=== PATIENT | male | born 1945 | race Two or more races ===

== ENCOUNTER 2020-05-02 12:25 | Emergency (ER) | payer MEDICARE, BC ==
[~2020-05-02] VITALS: Ht 172.7 cm; Wt 72.6 kg
[2020-05-02] MEDS ORDERED: GABA300C10 PO (12:53)
[2020-05-02] MEDS ORDERED: MID10T PO (12:53)
[2020-05-02] MEDS ORDERED: LEVO100T8 PO (12:53)
[2020-05-02] MEDS ORDERED: PANT40TA2 PO (12:54)
[2020-05-02] MEDS ORDERED: SUCR1TAB22 OR (12:57)
[2020-05-02] MEDS ORDERED: LACT10SO60 PO (12:57)
[2020-05-02] MEDS ORDERED: TAMS0.4C36 PO (12:58)
[2020-05-02] MEDS ORDERED: CALALOT17 EX (12:59)
[2020-05-02 14:25] LABS: Basophils # (auto) 0 10 ^3/uL (0-0.2); Basophils % (auto) 0.6 % (0.0-2.0); Eosinophils # (auto) 0.1 10 ^3/uL (0-0.8); Eosinophils % (auto) 2.2 % (0.0-7.0); Hematocrit 32.4 % (41.0-53.0); Hemoglobin 10.2 g/dL (13.5-17.5); Lymphocytes # (auto) 0.9 10 ^3/uL (0.4-5.4); Lymphocytes % (auto) 24.9 % (10.0-50.0); Mean Corpuscular Hemoglobin 28.9 pg (28.0-32.0); Mean Corpuscular Hgb Conc. 31.6 g/dL (32.0-36.0); Mean Corpuscular Volume 91.3 fL (80.0-100.0); Monocytes # (auto) 0.4 10 ^3/uL (0-1.3); Monocytes % (auto) 10.3 % (0.0-12.0); Neutrophils # (auto) 2.4 10 ^3/uL (1.6-8.6); Nucleated Red Blood Cells % 0.1 %; Platelet Count (auto) 85 10^3/uL (140-450); Red Blood Cells 3.54 10^6/uL (4.5-5.90); Red Cell Distribution Width 19.1 % (11.8-14.3); White Blood Cell 3.8 10^3/uL (4.4-10.8)
[2020-05-02 14:27] VITALS: BP 84/50
[2020-05-02 14:41] LABS: INR 1.5 (0.9-1.15); Partial Thromboplastin Time 43.7 sec (23.0-31.2)
[2020-05-02 14:44] LABS: Calcium 7.7 mg/dL (8.5-10.1); Potassium 4.5 mmol/L (3.5-5.1)
[2020-05-02 14:47] LABS: BUN/Creatinine Ratio 8.2; Bilirubin, Total 1.2 mg/dL (0.2-1.0)
== END 2020-05-02 15:58 | disposition home or self-care (01) ==
LOC: ER 12:25
DX: R18.8 Other ascites (principal); I95.9 Hypotension, unspecified; R06.02 Shortness of breath; Z79.899 Other long term (current) drug therapy
CPT/HCPCS: 36415; 49083; 76700; 76942; 80053; 82140; 83690; 85025; 85610; 85730

== ENCOUNTER 2020-05-09 10:00 | Inpatient (IN) | payer MEDICARE, BC ==
[~2020-05-09] VITALS: Ht 172.7 cm; Wt 76.2 kg
[~2020-05-09 10:00] MED LIST: CALALOT17 EX; GABA300C10 PO; LACT10SO60 PO; LEVO100T8 PO; MID10T PO; PANT40TA2 PO; SUCR1TAB22 OR; TAMS0.4C36 PO
[2020-05-09 10:46] LABS: Basophils # (auto) 0 10 ^3/uL (0-0.2); Basophils % (auto) 0.9 % (0.0-2.0); Eosinophils # (auto) 0.1 10 ^3/uL (0-0.8); Hematocrit 35.2 % (41.0-53.0); Hemoglobin 11.3 g/dL (13.5-17.5); Lymphocytes # (auto) 1.1 10 ^3/uL (0.4-5.4); Lymphocytes % (auto) 31.5 % (10.0-50.0); Mean Corpuscular Hemoglobin 28.4 pg (28.0-32.0); Mean Corpuscular Hgb Conc. 32.2 g/dL (32.0-36.0); Mean Corpuscular Volume 88.1 fL (80.0-100.0); Monocytes # (auto) 0.4 10 ^3/uL (0-1.3); Monocytes % (auto) 10.9 % (0.0-12.0); Neutrophils # (auto) 1.8 10 ^3/uL (1.6-8.6); Neutrophils % (auto) 53.7 % (37.0-80.0); Nucleated Red Blood Cells % 0.1 %; Platelet Count (auto) 74 10^3/uL (140-450); Red Blood Cells 3.99 10^6/uL (4.5-5.90); Red Cell Distribution Width 18.8 % (11.8-14.3); White Blood Cell 3.4 10^3/uL (4.4-10.8)
[2020-05-09 11:01] LABS: Albumin 2.3 g/dL (3.4-5.0); Calcium 7.8 mg/dL (8.5-10.1); Potassium 4.4 mmol/L (3.5-5.1)
[2020-05-09 11:05] LABS: BUN/Creatinine Ratio 7.7; Bilirubin, Total 1.2 mg/dL (0.2-1.0); Total Protein 6.6 g/dL (6.4-8.2)
[2020-05-09 11:29] LABS: INR 1.35 (0.9-1.15); Partial Thromboplastin Time 40.7 sec (23.0-31.2)
[2020-05-09] MEDS ORDERED: FUROSEMIDE 40 MG/4 ML VIAL IV ONE ×2 (13:15→16:15)
[2020-05-09] MEDS ORDERED: LACTULOSE 20Gm/30ML SOLN PO ONE (13:15)
[2020-05-09] MEDS ORDERED: SODIUM CHLORIDE 0.9% 500 ML IVB ONE (13:15)
[2020-05-09] MEDS ORDERED: SODIUM CHLORIDE 0.9% 1,000 ML IV ONE (13:15)
[2020-05-09] MEDS ORDERED: SPIRONOLACTONE 25 MG TAB PO ONE (13:15)
[2020-05-09 13:38] LABS: Magnesium 2.2 mg/dL (1.6-2.6)
[2020-05-09] MEDS ORDERED: NITROGLYCERIN 0.4 MG SL TAB SL PRN (15:15)
[2020-05-09] MEDS ORDERED: HYDROcodone-ACET 5/325MG TAB PO PRN (15:15)
[2020-05-09] MEDS ORDERED: ONDANSETRON HCL 4 MG/2 ML VIAL IV PRN (15:15)
[2020-05-09] MEDS ORDERED: MORPHINE SULF INJ 2 MG/ML SYRINGE 1ML IV PRN ×2 (15:15)
[2020-05-09] MEDS ORDERED: ALBUMIN 25% 50 ML IV ONE (15:15)
[2020-05-09] MEDS ORDERED: ACETAMINOPHEN 500 MG TAB PO PRN (15:15)
[2020-05-09 15:19] LABS: Urine Bacteria FEW /hpf (None Seen); Urine Blood 2+ /uL (Negative); Urine Specific Gravity 1.005 (1.001-1.035); Urine WBC 113 /hpf (0 - 3); Urine WBC Clumps PRESENT /hpf (None Seen)
[2020-05-09] MEDS: MIDODRINE HCL 10 MG TAB PO SCH (17:38)
[2020-05-09] MEDS: TAMSULOSIN HYDROCHLORIDE 0.4 MG CAP PO SCH (17:38)
--- NOTE | 2020-05-09 21:40 | NUR ---
Telemetry admit from [facility] admitted to Telemetry unit after SBAR received. Patient oriented to Niru armas RN, unit, room, bed, and unit policies regarding patient care and visiting hours. Patient now on continuous telemetry monitoring, tele box # 67 and telemetry reading on arrival to unit is SR 92. Patient placed on bedside oxygen, weighed by bed scale and encouraged to call if they need something. All questions and concerns addressed, patient verbalized understanding. Note: Came per wheelchair, awake alert oriented x 4, very hard of hearing, placed in the bed comfortably, vital signs checked,with Brice leg bag with yellow urine output, changed the leg bag to big bag.
[2020-05-09] MEDS: LACTULOSE 20Gm/30ML SOLN PO SCH (21:42)
[2020-05-09] MEDS: APIXABAN 5 MG TAB PO SCH (21:43)
[2020-05-09 22:23] VITALS: BP 90/60
--- NOTE | 2020-05-09 22:30 | NUR ---
Admission Admission done by this RN. Information obtain from daughter. Daughter will like for RN to notify Primary Care provider about her father hospital visit (Dr.Kevin Pizarro ). Patient is a high risk for VTE, notified primary nurse.
[2020-05-09] MEDS ORDERED: SPIR25TA8 PO (22:53)
[2020-05-09] MEDS ORDERED: APIX5TAB PO (22:53)
[2020-05-09] MEDS ORDERED: POTA10TA51 PO (22:53)
[2020-05-09] MEDS ORDERED: FURO1TAB33 PO (22:54)
[2020-05-09 23:36] VITALS: BP 90/60
[2020-05-10 05:28] VITALS: BP 97/69
[2020-05-10] MEDS: MIDODRINE HCL 10 MG TAB PO SCH ×3 (05:31→17:47)
[2020-05-10] MEDS ORDERED: LEVOTHYROXINE SODIUM 100 MCG TAB PO SCH (07:00)
--- NOTE | 2020-05-10 07:31 | NUR ---
Report given to Eder Hampton, patient is resting no distress.
[2020-05-10 09:00] VITALS: BP 91/63
--- NOTE | 2020-05-10 09:10 | NUR ---
Memo BRYANT notified to hold Eliquis for procedure, needs to be 1-2 days after last dose.
--- NOTE | 2020-05-10 09:16 | NUR ---
RECEIVED CALL FOR HOLDING ELIQUIS DUE TO PLAN TAP ON 05/11/20 PER RADIOLOGY STAFF.
[2020-05-10] MEDS: APIXABAN 5 MG TAB PO SCH ×2 (10:00→19:33)
[2020-05-10] MEDS: PANTOPRAZOLE 40 MG TAB PO SCH (10:00)
[2020-05-10] MEDS: LACTULOSE 20Gm/30ML SOLN PO SCH ×2 (10:00→23:04)
[2020-05-10 13:00] VITALS: BP 94/66
[2020-05-10] MEDS ORDERED: PHYTONADIONE(VitK) ORAL Susp 10mg/10ml(1mg/ml) PO ONE (15:15)
--- NOTE | 2020-05-10 15:16 | NUR ---
ss consult Per ss consult daughter is interested in advanced directive. I have provided patient with advanced directive. Addendum: 05/10/20 at 1517 by Merle MEJIA Amended: Links added.
--- NOTE | 2020-05-10 15:25 | NUR ---
PHARMACY CONTACTED FOR VIT-K PROCUREMENT
[2020-05-10] MEDS ORDERED: LEVOTHYROXINE SODIUM 50 MCG TAB PO ONE (15:30)
[2020-05-10 17:00] VITALS: BP 91/63
--- NOTE | 2020-05-10 17:30 | NUR ---
PHARMACY WILL SEND VIT-K. AWAITING
[2020-05-10] MEDS: TAMSULOSIN HYDROCHLORIDE 0.4 MG CAP PO SCH (17:47)
--- NOTE | 2020-05-10 18:19 | NUR ---
AWAITING PHARMACY- VIT-K.
[2020-05-10 22:00] VITALS: BP 95/60
--- NOTE | 2020-05-10 22:00 | NUR ---
Per report from ANNETTE Hampton and notes, patient going for procedure on 05/11/20 and to hold Eliquis. Medication held.
[2020-05-11] VITALS (13 sets, daily range): BP systolic 89–115; BP diastolic 60–79
[2020-05-11] MEDS: MIDODRINE HCL 10 MG TAB PO SCH ×3 (05:20→17:26)
--- NOTE | 2020-05-11 05:35 | NUR ---
KARLIE Reyna applied and mcdonald care given. patient tolerated well. Addendum: 05/11/20 at 0631 by Alverto Toth RN full linen bed change given as well.
--- NOTE | 2020-05-11 05:35 | NUR ---
upon CHG wipe down, notice scab/abrasion on right lateral calf muscle x1. Patient verbally states "I had this scab from home". open to air, no drainage noted.
[2020-05-11 06:22] LABS: INR 1.3 (0.9-1.15)
[2020-05-11 06:32] LABS: Potassium 4.4 mmol/L (3.5-5.1)
[2020-05-11 06:44] LABS: Basophils # (auto) 0 10 ^3/uL (0-0.2); Basophils % (auto) 0.8 % (0.0-2.0); Eosinophils # (auto) 0.1 10 ^3/uL (0-0.8); Eosinophils % (auto) 2.6 % (0.0-7.0); Hematocrit 36.5 % (41.0-53.0); Hemoglobin 11.7 g/dL (13.5-17.5); Lymphocytes # (auto) 0.9 10 ^3/uL (0.4-5.4); Mean Corpuscular Hemoglobin 28.2 pg (28.0-32.0); Mean Corpuscular Hgb Conc. 32.1 g/dL (32.0-36.0); Mean Corpuscular Volume 87.7 fL (80.0-100.0); Monocytes # (auto) 0.2 10 ^3/uL (0-1.3); Monocytes % (auto) 8.1 % (0.0-12.0); Neutrophils # (auto) 1.7 10 ^3/uL (1.6-8.6); Neutrophils % (auto) 57.5 % (37.0-80.0); Nucleated Red Blood Cells % 0.1 %; Platelet Count (auto) 73 10^3/uL (140-450); Red Blood Cells 4.16 10^6/uL (4.5-5.90); Red Cell Distribution Width 18.9 % (11.8-14.3); White Blood Cell 2.9 10^3/uL (4.4-10.8)
[2020-05-11 06:57] LABS: Albumin 2.5 g/dL (3.4-5.0); BUN/Creatinine Ratio 7.8; Bilirubin, Direct 0.9 mg/dL (0-0.2); Bilirubin, Total 1.8 mg/dL (0.2-1.0); Calcium 8.1 mg/dL (8.5-10.1); Total Protein 6.7 g/dL (6.4-8.2)
[2020-05-11] MEDS ORDERED: LEVOTHYROXINE SODIUM 50 MCG TAB PO SCH (07:00)
--- NOTE | 2020-05-11 07:20 | NUR ---
PT NPO FOR PLANNED PROCEDURES. PT AWARE.
[2020-05-11] MEDS ORDERED: ADENOSINE 64 MG in GIVE UN-DILUTED 0 ML IV STA (08:18)
[2020-05-11] MEDS: PANTOPRAZOLE 40 MG TAB PO SCH (10:00)
[2020-05-11] MEDS: APIXABAN 5 MG TAB PO SCH (10:00)
[2020-05-11] MEDS: LACTULOSE 20Gm/30ML SOLN PO SCH (10:00)
--- NOTE | 2020-05-11 10:45 | NUR ---
WOUND CARE NOTE: WOUND CONSULT ORDERED FOR PATIENT FOR WOUND TO RIGHT CALF. WOUND PHOTO TAKEN UPON ADMIT. PATIENT HAS CURRENT ARMANDO SCORE OF 19. PATIENT CAN AMBULATE, SELF TURN. PATIENT HAS A SMALL SCABBED ABRASION TO THE RIGHT CALF. NO OPEN OR DRAINING AREAS NOTED. LEFT OPEN TO AIR. NO FURTHER WOUND CARE MONITORING NEEDED.
--- NOTE | 2020-05-11 11:35 | NUR ---
PARACENTESIS COMPLETED. PT TOLERATED PROCEDURE WELL. NO S/S OF DISTRESS. OUTPUT TOTAL: 4800ml CALL LIGHT WITHIN REACH. BED LOCKED AND IN LOWEST POSITION. WILL CONTINUE TO MONITOR.
--- NOTE | 2020-05-11 12:15 | NUR ---
Pt taken to cardiac cath tech for IVC filter placement. Pt and daughter Henrietta aware of planned procedure. Pt transported via bed. No s/s of distress.
[2020-05-11] MEDS ORDERED: LIDOCAINE 2%HCL (LOCAL ANESTH.) INJ 20ML MDV ONE ×2 (13:26→14:12)
[2020-05-11] MEDS ORDERED: fentaNYL CITRATE 100 MCG/2 ML VL ONE (13:28)
[2020-05-11] MEDS ORDERED: MIDAZOLAM HCL 1MG/1ML-2 ML VIAL ONE (13:28)
--- NOTE | 2020-05-11 15:10 | NUR ---
PT BACK TO UNIT. TRANSPORTED VIA BED. NO S/S OF DISTRESS. EFFORTLESS BREATHING ON ROOM AIR. PER REPORT: ARTERIAL ACCESS SITE TO RIGHT GROIN, VENOUS ACCESS SITE TO LEFT GROIN. BOTH SITES DRESSING CDI, ASYMPTOMATIC. PT AWARE OF REMAINING FLAT IN BED UNTIL 1635. VERBALIZES UNDERSTANDING. BED LOCKED AND IN LOWEST POSITION, CALL LIGHT WITHIN REACH. WILL CONTINUE TO MONITOR.
--- NOTE | 2020-05-11 16:33 | NUR ---
PER MD BOWMAN. PT OK TO DC AFTER ABLE TO SIT UP AND GET OUT OF BED. TIME SET PER IRRIGATION FLUME LAYER ORDERS POST PROCEDURE 1999. PER OK TO DC PT AFTER 1999 PT AND DAUGHTER WILL AWARE OF PLAN.
[2020-05-11] MEDS: TAMSULOSIN HYDROCHLORIDE 0.4 MG CAP PO SCH (17:26)
--- NOTE | 2020-05-11 18:30 | NUR ---
PT IN LOW FOWLERS, DENIES ANY PAIN, EFFORTLESS BREATHING ON ROOM AIR. IVC FILTER INCISION SITES ASYMPTOMATIC AT MOMENT. CALL LIGHT WITHIN REACH.
--- NOTE | 2020-05-11 20:59 | NUR ---
SPOKE TO JSOE FROM [facility] AND NOTIFIED HIM OF PATIENT BEING DISCHARGE NOW. JOSE FROM [facility] PROVIDED CONFIRMATION THAT HE WILL CONTINUE HOME HEALTH WITH PATIENT. Addendum: 05/11/20 at 2101 by Alverto Toth RN FAXED DISCHARGE INSTRUCTIONS TO [facility] REQUESTED BY JOSE FROM [facility]. FAX NUMBER IS [phone]
--- NOTE | 2020-05-11 21:40 | NUR ---
Discharge instructions given as ordered. Encourage to follow up with PMD as instructed. All questions and concerns addressed. Patient and daughter Jose verbalized understanding. Medication reconciliation form completed and copy given to patient. no vaccines given, patient is up to date. IV removed with catheter intact, pressure dressing applied. Per report from ANNETTE Hampton, patient is to go home with mcdonald catheter and to change to leg bag which was completed. patient has leg bag on. Telemetry unit returned to ICU. Patient taken to vehicle via wheelchair with all personal belongings, accompanied by staff and family member. Everything explained to daughter once I took patient down stairs. Per daughter all appointments are made for follow ups. Educated patient and daughter on incision care for ivc filter. there are two incisions sites, with dressings clean dry and intact/ no swelling, blood, heat, at incision sites. Educated patient on patient activity as ordered. No distress noted at time of departure. Home health contacted earlier to resume. patient was off floor 2108. Addendum: 05/11/20 at 2146 by Alverto Toth RN jose rice acknowledge all education and instructions given. Addendum: 05/11/20 at 2147 by Alverto Toth RN wound picture taken for right calf abrasion scab.
[2020-05-17] MEDS ORDERED: ALBUMIN 25% 100 ML IV ONE (10:00)
== END 2020-05-11 21:09 | disposition home health service (06) | DRG 433 ==
LOC: ER 10:00 → TELE 10:01 → TELE-WESTW 21:40
PROVIDERS: ADMIT Nurse Practitioner Acute Care; ATTEND Internal Medicine
PROC: 0W9G30Z Drainage of Peritoneal Cavity with Drainage Device, Percutaneous Approach (ICD-10-PCS; principal; 2020-05-11)
PROC: 06H03DZ Insertion of Intraluminal Device into Inferior Vena Cava, Percutaneous Approach (ICD-10-PCS; 2020-05-11)
DX: K70.31 Alcoholic cirrhosis of liver with ascites (principal); I82.421 Acute embolism and thrombosis of right iliac vein; E87.1 Hypo-osmolality and hyponatremia; D68.59 Other primary thrombophilia; D61.818 Other pancytopenia; J98.11 Atelectasis; E44.0 Moderate protein-calorie malnutrition; I95.9 Hypotension, unspecified; Z79.01 Long term (current) use of anticoagulants; N28.89 Other specified disorders of kidney and ureter; K21.9 Gastro-esophageal reflux disease without esophagitis; E03.9 Hypothyroidism, unspecified; N40.0 Benign prostatic hyperplasia without lower urinary tract symptoms; E86.1 Hypovolemia; I10 Essential (primary) hypertension; I95.89 Other hypotension; Z80.42 Family history of malignant neoplasm of prostate; Z83.3 Family history of diabetes mellitus; Z86.718 Personal history of other venous thrombosis and embolism; Z95.828 Presence of other vascular implants and grafts; G62.9 Polyneuropathy, unspecified; M19.90 Unspecified osteoarthritis, unspecified site; Z79.899 Other long term (current) drug therapy
CPT/HCPCS: 10022; 36415; 71045; 76700; 76942; 78452; 80048; 80053; 80076; 81001; 83690; 83735; 84443; 85025; 85610; 85730; 86850; 86900; 86901; 87081; 93017; 93886; 96361; 96365; 96375; 99152; G0378; J0153; J2250

== ENCOUNTER → 2020-05-18 | Outpatient (CLI) | payer MEDICARE, BC ==
[~2020-05-18] MED LIST changes: +APIX5TAB PO; -CALALOT17 EX; +FURO1TAB33 PO; +POTA10TA51 PO; +SPIR25TA8 PO
[2020-05-18 09:30] VITALS: BP 103/67
[2020-05-18 09:45] VITALS: BP 108/67
[2020-05-18 09:55] VITALS: BP 95/63
[2020-05-18 10:00] VITALS: BP 100/65
[2020-05-18 10:05] VITALS: BP 97/62
[2020-05-18 10:10] VITALS: BP 97/61
--- NOTE | 2020-05-18 10:17 | NUR ---
PT ARRIVED TODAY FOR PARACENTESIS PROCEDURE. PT PRESENTED A/Ox4 AND VITAL SIGNS ARE ALL WITHIN NORMAL LIMITS. PT SPO2 97% ON ROOM AIR. PROCEDURE WAS PERFORMED BY DR. APODACA, GAINING ACCESS TO THE ABDOMINAL CAVITY THOUGH THE RUQ OF THE ABDOMEN. 4,450ML OF SEROUS COLORED FLUID WAS DRAINED WITH NO SHIFT IN VITAL SIGNS OR PT CONDITION. THE CATHETER WAS REMOVED AND DRESSED WITH A STERILE TECHNIQUE. ENDING VITAL SIGNS ARE ALL WITHIN NORMAL LIMITS ON ROOM AIR. PT WAS SENT HOME WITH SITE CARE INSTRUCTIONS.
== END | disposition home or self-care (01) ==
LOC: US 08:35
DX: R18.8 Other ascites (principal); Z86.718 Personal history of other venous thrombosis and embolism; Z80.42 Family history of malignant neoplasm of prostate; Z98.890 Other specified postprocedural states
CPT/HCPCS: 49083; C1729; 10022; 76942

== ENCOUNTER → 2020-05-27 | Outpatient (CLI) | payer MEDICARE, BC | END | disposition home or self-care (01) | LOC: US 10:14 | DX: R18.8 Other ascites (principal); Z86.718 Personal history of other venous thrombosis and embolism; Z98.890 Other specified postprocedural states; Z79.899 Other long term (current) drug therapy; Z80.42 Family history of malignant neoplasm of prostate | CPT/HCPCS: 49083; C1729; 10022; 76942 ==

== ENCOUNTER 2020-06-08 08:59 | Inpatient (IN) | payer MEDICARE, BC ==
[~2020-06-08] VITALS: Ht 172.7 cm; Wt 68.8 kg
[2020-06-08] MEDS ORDERED: SODIUM CHLORIDE 0.9% 1,000 ML IV ONE (09:15)
[2020-06-08 09:49] LABS: Basophils # (auto) 0 10 ^3/uL (0-0.2); Hemoglobin 11.7 g/dL (13.5-17.5); Monocytes # (auto) 0.4 10 ^3/uL (0-1.3); Neutrophils # (auto) 2.2 10 ^3/uL (1.6-8.6); Platelet Count (auto) 74 10^3/uL (140-450); White Blood Cell 3.7 10^3/uL (4.4-10.8)
[2020-06-08 09:51] LABS: Basophils % (auto) 0.7 % (0.0-2.0); Eosinophils # (auto) 0.2 10 ^3/uL (0-0.8); Eosinophils % (auto) 4.1 % (0.0-7.0); Hematocrit 36.1 % (41.0-53.0); Lymphocytes % (auto) 25.9 % (10.0-50.0); Mean Corpuscular Hemoglobin 26.8 pg (28.0-32.0); Mean Corpuscular Hgb Conc. 32.5 g/dL (32.0-36.0); Mean Corpuscular Volume 82.4 fL (80.0-100.0); Monocytes % (auto) 9.8 % (0.0-12.0); Neutrophils % (auto) 59.5 % (37.0-80.0); Nucleated Red Blood Cells % 0.2 %; Red Blood Cells 4.38 10^6/uL (4.5-5.90)
[2020-06-08 09:52] LABS: Red Cell Distribution Width 20.3 % (11.8-14.3)
[2020-06-08 10:09] LABS: Albumin 2.5 g/dL (3.4-5.0); Calcium 8.5 mg/dL (8.5-10.1); Potassium 4.6 mmol/L (3.5-5.1)
[2020-06-08 10:16] LABS: BUN/Creatinine Ratio 16.7; Bilirubin, Total 1.3 mg/dL (0.2-1.0); Total Protein 6.8 g/dL (6.4-8.2)
[2020-06-08 12:51] LABS: Urine Bacteria NONE SEEN /hpf (None Seen); Urine Blood 1+ /uL (Negative); Urine Specific Gravity 1.004 (1.001-1.035); Urine WBC 1 /hpf (0 - 3)
[2020-06-08] MEDS ORDERED: MORPHINE SULF INJ 2 MG/ML SYRINGE 1ML IV PRN ×3 (14:00→14:30)
[2020-06-08] MEDS ORDERED: ALBUMIN 25% 100 ML IV ONE (14:00)
[2020-06-08] MEDS ORDERED: FUROSEMIDE 20 MG/2 ML VIAL IV ONE (14:00)
[2020-06-08] MEDS ORDERED: NITROGLYCERIN 0.4 MG SL TAB SL PRN ×2 (14:00→14:30)
[2020-06-08] MEDS ORDERED: POTA10TA32 PO (14:06)
[2020-06-08] MEDS ORDERED: SPIR25TA8 PO (14:09)
[2020-06-08] MEDS ORDERED: ONDANSETRON HCL 4 MG/2 ML VIAL IV PRN (14:30)
[2020-06-08] MEDS ORDERED: HYDROcodone-ACET 5/325MG TAB PO PRN (14:30)
[2020-06-08] MEDS ORDERED: cefTRIAXone 1GM/50ML D5W 50 ML IV ONE (14:30)
[2020-06-08] MEDS ORDERED: ACETAMINOPHEN 325 MG TAB PO PRN (14:30)
[2020-06-08] MEDS ORDERED: ALUM & MAG HYDROX-SIMETH LIQ(MAALOX) 30 ML PO PRN (14:30)
[2020-06-08] MEDS ORDERED: DOCUSATE SOD 100 MG CAP PO PRN (14:30)
[2020-06-08] MEDS ORDERED: LORazepam 0.5 MG TAB PO PRN (14:30)
[2020-06-08] MEDS ORDERED: LACTULOSE 20Gm/30ML SOLN PO PRN (16:30)
[2020-06-08] MEDS: SPIRONOLACTONE 25 MG TAB PO SCH (17:29)
[2020-06-08] MEDS: SUCRALFATE 1 GM TAB PO SCH ×2 (17:43→22:43)
[2020-06-08] MEDS: TAMSULOSIN HYDROCHLORIDE 0.4 MG CAP PO SCH (17:44)
[2020-06-08] MEDS: MIDODRINE HCL 10 MG TAB PO SCH (17:44)
[2020-06-08 18:00] LABS: Alcohol, Urine < 3.0 mg/dL (0-10); Amphetamine Screen, Urine NEGATIVE (NEGATIVE); Barbiturate Scree,Urine NEGATIVE (NEGATIVE); Benzodiazephine Screen, Urine NEGATIVE (NEGATIVE); Cannabinoid Screen, Urine NEGATIVE (NEGATIVE); Cocaine Screen, Urine NEGATIVE (NEGATIVE); Opiate Scree,Urine NEGATIVE (NEGATIVE); Phencyclidine Screen, Urine NEGATIVE (NEGATIVE)
--- NOTE | 2020-06-08 20:05 | NUR ---
Telemetry admit from ER Patient admitted to Telemetry unit and oriented to primary RN, unit, room, bed, and unit policies regarding patient care and visiting hours. Patient now on continuous telemetry monitoring, tele box #38 and telemetry reading on arrival to unit is sinus rhythm in 80s. Bed is in lowest position and locked. Call light within reach. Board updated. Patient weighed by bedscale and encouraged to call if they need something. All questions and concerns addressed, patient verbalized understanding.
[2020-06-08 20:30] VITALS: BP 97/62
--- NOTE | 2020-06-08 21:58 | NUR ---
Paging hospitalist to request Ammonia level be taken. Patient has liver cirrhosis and has his ammonia level checked weekly. Per daughter, last level was 151 last week, the prior week was 63. Patient takes Lactulose 30mls BID at home to keep ammonia level in check. No ammonia level has been taken will patient has been hospitalized.
[2020-06-08 22:00] VITALS: BP 97/62
[2020-06-08] MEDS: FUROSEMIDE 20 MG/2 ML VIAL IV SCH (22:00)
--- NOTE | 2020-06-08 22:28 | NUR ---
Spoke to REDDY Solo. Notified him of low BP (97/62) and that I held the Lasix 20 mg IV. REDDY Solo agreed to hold medication. No parameters given. Order received: Ammonia routine once.
[2020-06-08] MEDS: ALBUMIN 25% 100 ML IV SCH (22:44)
[2020-06-08] MEDS: APIXABAN 5 MG TAB PO SCH (22:44)
[2020-06-09 05:00] VITALS: BP 95/60
[2020-06-09] MEDS: SPIRONOLACTONE 25 MG TAB PO SCH ×2 (06:00→17:47)
[2020-06-09] MEDS: FUROSEMIDE 20 MG/2 ML VIAL IV SCH ×2 (06:00→17:46)
--- NOTE | 2020-06-09 06:10 | NUR ---
Notified hospitalist that I am holding Lasix for decreased BP of 95/60. INDOOR LANDSCAPE ARCHITECT Edil acknowledged it should be held. No other orders given.
[2020-06-09] MEDS: MIDODRINE HCL 10 MG TAB PO SCH ×3 (06:27→17:47)
[2020-06-09] MEDS: ALBUMIN 25% 100 ML IV SCH ×2 (06:27→13:53)
[2020-06-09] MEDS: SUCRALFATE 1 GM TAB PO SCH ×4 (06:27→22:15)
[2020-06-09] MEDS: LEVOTHYROXINE SODIUM 100 MCG TAB PO SCH (06:28)
--- NOTE | 2020-06-09 07:36 | NUR ---
Endorsed to day shift RN that per radiology patient cannot have paracentesis until 1) patient has been off Eliquis 24-48 hours, and 2) coagulation panel has been ordered.
--- NOTE | 2020-06-09 08:00 | NUR ---
Opening Shift Note Assumed care of patient, awake, alert and oriented X4. No S/S of distress/SOB or pain. Tele# 38, sinus rhythm @ 61 bpm. IV to right antecubital, 20 gauge, patent and saline locked. Urethral Brice catheter draining clear straw urine to gravity. Instructed on POC and to call for assist PRN, will continue to monitor for changes Q1hr and PRN.
[2020-06-09 08:49] VITALS: BP 90/53
--- NOTE | 2020-06-09 09:00 | NUR ---
SPOKE TO PATIENT'S RN MICHAEL RE: ELIQUALBA AND INFORMED HER THAT PATIENT HAD BEEN OFF OF MED SINCE SUNDAY HE WAS SCHEDULED FOR OUTPATIENT PARACENTESIS. PATIENT HAD DOSE OF ELIQUIS LAST HS. COAGS ORDERED PER PROTOCOL.
--- NOTE | 2020-06-09 09:30 | NUR ---
SITE SUPERVISING TECHNICAL OPERATOR INFORMED PATIENT'S RN MICHAEL TO HOLD THIS AM ESTELLA. CALL PLACED TO DR STODDARD RE: ELIQUIS AND PARACENTESIS ORDER.
--- NOTE | 2020-06-09 09:50 | NUR ---
STRESS TEST Patient returned form Stress Lab via wheelchair, no distress noted upon return. Addendum: 06/09/20 at 1120 by Anny Smith RN ERROR Wrong patient
[2020-06-09] MEDS: APIXABAN 5 MG TAB PO SCH (10:00)
[2020-06-09] MEDS: GABAPENTIN 300 MG CAP PO SCH (10:03)
[2020-06-09] MEDS: PANTOPRAZOLE 40 MG TAB PO SCH (10:03)
--- NOTE | 2020-06-09 10:15 | NUR ---
ROUNDS Dr Luda Car at bedside for rounds, new orders received and followed through. Patient updated on plan of care, verbalized understanding.
--- NOTE | 2020-06-09 10:30 | NUR ---
PLACED ANOTHER CALL TO DR STODDARD RE: ELIQUIS AND PARACENTESIS.
[2020-06-09 10:36] LABS: INR 1.42 (0.9-1.15); Partial Thromboplastin Time 40.9 sec (23.0-31.2)
--- NOTE | 2020-06-09 12:06 | NUR ---
SPOKE TO DR Anastasiya SILVA RE: ESTELLA, THAT ELIQUIS WAS HELD THIS AM, PLANNED PARACENTESIS FOR TOMORROW AM AND COAGS DRAWN TODAY - STATES TO HOLD ELIQUIS - PHARMACIST NOTIFIED AND WILL ENTER ORDER OFFICE CASHIER UNABLE TO ENTER A HOLD MEDICATION ORDER. PATIENT'S RN MICHAEL NOTIFIED.
[2020-06-09] MEDS: cefTRIAXone 1GM/50ML D5W 50 ML IV SCH (12:13)
[2020-06-09 12:23] VITALS: BP 98/68
--- NOTE | 2020-06-09 12:31 | NUR ---
Nutrition Assessment/Consult Notes Please refer to link for full assessment notes. Est Energy needs: [id number] kcals (30-35 kcal/kgBW) d/t pt liver dz Est Protein needs: 65-78 gms/day (1.0-1.2 gm/kgBW) d/t pt liver dz Will continue to monitor and reassess prn. Addendum: 06/09/20 at [address] Amended: Links added.
--- NOTE | 2020-06-09 12:35 | NUR ---
ROUNDS Dr Luda Car at bedside for rounds, new orders received and followed through. Patient updated on plan of care, verbalized understanding.
[2020-06-09 17:03] VITALS: BP 98/64
[2020-06-09] MEDS: LACTULOSE 20Gm/30ML SOLN PO SCH ×2 (17:46→23:36)
[2020-06-09] MEDS: TAMSULOSIN HYDROCHLORIDE 0.4 MG CAP PO SCH (17:47)
--- NOTE | 2020-06-09 19:12 | NUR ---
Care endorsed to ANNETTE Diaz, night nurse.
--- NOTE | 2020-06-09 19:45 | NUR ---
Opening Shift Note Assumed care of patient, awake and alert. A&Ox4. No S/S of distress/SOB or pain. Brice catheter intact and hung below the bladder. Safety measures maintained by keeping the bed locked in lowest position, 2 side rails up, personal items and call light within reach. Instructed on POC and to call for assist PRN, will continue to monitor for changes Q1hr and PRN.
[2020-06-09 23:14] VITALS: BP 96/59
[2020-06-10 05:00] VITALS: BP 87/62
--- NOTE | 2020-06-10 05:03 | NUR ---
Paged Hospitalist regarding Juan
--- NOTE | 2020-06-10 05:45 | NUR ---
Spoke to Hospitalist. Patient's blood pressure was 87/62. Notified hospitalist about holding Lasix. Hospitalist aware.
[2020-06-10] MEDS: FUROSEMIDE 20 MG/2 ML VIAL IV SCH ×2 (06:00→17:51)
[2020-06-10] MEDS: MIDODRINE HCL 10 MG TAB PO SCH ×3 (06:28→17:51)
[2020-06-10] MEDS: SPIRONOLACTONE 25 MG TAB PO SCH ×2 (06:28→17:51)
[2020-06-10] MEDS: LACTULOSE 20Gm/30ML SOLN PO SCH ×3 (06:28→17:51)
[2020-06-10] MEDS: LEVOTHYROXINE SODIUM 100 MCG TAB PO SCH (06:43)
[2020-06-10] MEDS: SUCRALFATE 1 GM TAB PO SCH ×4 (06:43→22:01)
[2020-06-10 07:21] LABS: INR 1.34 (0.9-1.15); Partial Thromboplastin Time 38.6 sec (23.0-31.2)
--- NOTE | 2020-06-10 08:25 | NUR ---
Opening Shift Note Received report from manager night nurse, assumed care of patient, Patient asleep, no S/S of distress. Brice in low position, bed in lowest position, call light within reach. Will continue to monitor for changes Q1hr and PRN.
--- NOTE | 2020-06-10 08:40 | NUR ---
PARACENTESIS CANCELLED FOR TODAY [employer] CONSULTED WITH DR FERRELL FOR PLANNED PARACENTESIS - STATES WOULD LIKE TO WAIT ANOTHER DAY SINCE ELIQUIS WAS GIVEN 06/08/20 HS DOSE. MAGISTRATE INFORMED PATIENT'S ANNETTE RODRIGUEZ AND DR SILVA.
[2020-06-10] MEDS: PANTOPRAZOLE 40 MG TAB PO SCH (08:49)
[2020-06-10] MEDS: GABAPENTIN 300 MG CAP PO SCH (08:49)
[2020-06-10] MEDS: cefTRIAXone 1GM/50ML D5W 50 ML IV SCH (08:49)
[2020-06-10 09:00] VITALS: BP 93/67
--- NOTE | 2020-06-10 09:45 | NUR ---
ROUNDS Dr Luda Car at bedside for rounds, no new orders received at this time. Patient updated on plan of care, verbalized understanding.
--- NOTE | 2020-06-10 10:30 | NUR ---
MD Car at bedside Patient updated on POC.
--- NOTE | 2020-06-10 11:21 | NUR ---
GI Dr Clements at bedside for GI consult, new orders received and followed through. Patient updated on plan of care, verbalized understanding.
[2020-06-10 11:37] LABS: Hepatitis A Ab IgM Negative; Hepatitis B Core IgM Negative; Hepatitis B Surface Antigen Negative (Negative); Hepatitis C Antibody Negative (Negative)
[2020-06-10 13:00] VITALS: BP 83/58
[2020-06-10 17:00] VITALS: BP 87/54
[2020-06-10] MEDS: TAMSULOSIN HYDROCHLORIDE 0.4 MG CAP PO SCH (17:51)
--- NOTE | 2020-06-10 18:59 | NUR ---
Care endorsed to ANNETTE Diaz, night nurse.
--- NOTE | 2020-06-10 19:40 | NUR ---
Opening Shift Note Assumed care of patient, awake and alert. A&Ox4. No S/S of distress/SOB or pain. Patient had a bowel movement and sheets were changed. Brice catheter draining and hung below the bladder. Safety measures maintained by keeping the bed locked in lowest position, 2 side rails up, personal items and call light within reach. Instructed on POC and to call for assist PRN, will continue to monitor for changes Q1hr and PRN.
[2020-06-10 22:00] VITALS: BP 92/62
[2020-06-10] MEDS: rifAXIMin 550 MG TAB PO SCH (22:02)
[2020-06-11] VITALS (16 sets, daily range): BP systolic 83–101; BP diastolic 54–88
[2020-06-11] MEDS: LACTULOSE 20Gm/30ML SOLN PO SCH ×4 (00:14→18:00)
[2020-06-11] MEDS: FUROSEMIDE 20 MG/2 ML VIAL IV SCH ×2 (06:00→18:00)
[2020-06-11] MEDS: MIDODRINE HCL 10 MG TAB PO SCH ×3 (06:07→18:00)
[2020-06-11] MEDS: SPIRONOLACTONE 25 MG TAB PO SCH ×2 (06:07→18:00)
[2020-06-11 06:43] LABS: INR 1.27 (0.9-1.15); Partial Thromboplastin Time 36.8 sec (23.0-31.2)
[2020-06-11 06:45] LABS: Potassium 4.2 mmol/L (3.5-5.1)
[2020-06-11] MEDS: LEVOTHYROXINE SODIUM 100 MCG TAB PO SCH (06:49)
[2020-06-11] MEDS: SUCRALFATE 1 GM TAB PO SCH ×3 (06:49→17:53)
[2020-06-11 07:13] LABS: Albumin 2.7 g/dL (3.4-5.0); BUN/Creatinine Ratio 13.9; Bilirubin, Total 1.3 mg/dL (0.2-1.0); Calcium 8.3 mg/dL (8.5-10.1); Total Protein 6.2 g/dL (6.4-8.2)
--- NOTE | 2020-06-11 07:35 | NUR ---
Opening Shift Note Assumed care of patient, patient laying quietly in bed with eyes closed . Patient is on room air with even and unlabored respirations noted. equal chest rise and fall present. No S/S of distress/SOB or pain. Bed is in lowest locked position, side rails up x2, call light with in reach. Will continue to monitor for changes Q1hr and PRN.
--- NOTE | 2020-06-11 08:32 | NUR ---
SPOKE WITH SERVICE DELIVERY MANAGER SPOKE WITH SERVICE DELIVERY MANAGER. FRIEDA, RE: PARACENTESIS. RN STATED THAT PROCEDURE SHOULD HAPPEN TODAY, LATER THIS AM OR EARLY AFTERNOON. PER FRIEDA SHE WILL CALL ME WITH AN UPDATE AFTER TALKING WITH RADIOLOGIST. WILL CONTINUE TO MONITOR Q1H AND PRN.
[2020-06-11] MEDS: cefTRIAXone 1GM/50ML D5W 50 ML IV SCH (09:00)
--- NOTE | 2020-06-11 09:37 | NUR ---
PATIENT OFF FLOOR FOR PROCEDURE PATIENT TRANSPORTED OFF UNIT BY RADIOLOGY TECHS VIA BED FOR PARACENTESIS. PATIENT IS ALERT AND AWAKE, ON ROOM AIR WITH EVEN AND UNLABORED RESPIRATIONS, NO S/S OF DISTRESS/SOB NOTED UPON TIME OF DEPARTURE. WILL AWAIT RETURN OF PATIENT BACK TO UNIT.
[2020-06-11] MEDS: rifAXIMin 550 MG TAB PO SCH (10:00)
[2020-06-11] MEDS: PANTOPRAZOLE 40 MG TAB PO SCH (10:00)
[2020-06-11] MEDS: GABAPENTIN 300 MG CAP PO SCH (10:00)
[2020-06-11] MEDS ORDERED: SODIUM CHLORIDE 0.9% 500 ML IV ONE (10:45)
--- NOTE | 2020-06-11 10:55 | NUR ---
PT RETURNED TO FLOOR FROM RADIOLOGY PT RETURNED FROM RADIOLOGY. PATIENT IS ALERT AND AWAKE WITH EVEN AND UNLABORED RESPIRATIONS. PT IS ON ROOM AIR WITH NO S/S OF DISTRESS/SOB OR PAIN NOTED. PER AIR ANALYSIS TECHNICIAN, RECEIVED ORDER FROM DR. SILVA FROM [facility] D/T DECREASE BP. UPON ARRIVAL PT IS ASYMPTOMATIC, CURRENT BP IS 89/56 HR 64. BOLUS CURRENTLY INFUSING. WILL CONTINUE TO MONITOR Q1H AND PRN.
--- NOTE | 2020-06-11 11:45 | NUR ---
DR. WARNER AT NURSES STATION DR. WARNER AT NURSES STATION, INFORMED RE: PT STATUS AND OF PARACENTESIS RESULTS WITH 3300 OUT AND NOW PT WITH LOW BP. PER DR. WARNER HE WANTS PT TO HAVE ALBUMIN PRIOR TO D/C LATER TONIGHT. PER DR. WARNER, LONG BP INCREASES CLOSER TO BASELINE, PT IS STILL OKAY TO D/C LATER THIS AFTERNOON. WILL CARRY OUT ORDER. WILL CONTINUE TO MONITOR Q1H AND PRN.
--- NOTE | 2020-06-11 11:46 | NUR ---
PARACENTESIS PATIENT UNDERWENT PARACENTESIS IN [facility] UNDER LOCAL ANESTHESIA PER DR OROPEZA. PATIENT BP AT BEGINNING OF PROCEDURE 93/65. CONTINUED TO MONITOR BP THROUGHOUT PROCEDURE. BP DOWN TO 84/54 SO PROCEDURE STOPPED SECONDARY TO HYPOTENSION. PATIENT DENIES DIZZINESS. SEE VITALS FLOW SHEET FOR RECORD OF VS WHICH CONTINUED TO BE MONITORED AFTER PROCEDURE. BP VERY LABILE - AT 1035 DR SILVA NOTIFIED OF PATIENT'S BP 83/55 - ORDERS RECEIVED FOR IVF NS BOLUS. NS BOLUS STARTED PER ORDERS @ 1045. ALSO AFTER PROCEDURE - LUMP NOTED TO RLQ ABD WITH SM AMT BLEEDING FROM PARACENTESIS INSERTION SITE - PRESSURE APPLIED. DR OROPEZA NOTIFIED AND EXAMINED PATIENT - AREA SCANNED PER [place]. PER DR OROPEZA - NO HEMATOMA NOTED. LARGE BANDAID APPLIED TO RLQ ABD WITHOUT FURTHER BLEEDING NOTED. 3300 ML STRAW COLORED LIQUID DRAINED - RECORDED ON I&O INTERVENTION. PATIENT RETURNED TO ROOM ACCOMPANIED PER VICE PRESIDENT [employer] AND CHIEF OPHTHALMIC TECHNICIAN.
--- NOTE | 2020-06-11 11:55 | NUR ---
SPOKE WITH DR. SHIRA SILVA AT NURSES STATION. SPOKE TO DR. RAPHAEL: D/C AND SLIGHTLY LOW BP FROM PATIENT'S BASELINE AFTER PARACENTESIS. CURRENT BP IS 89/63 HR 82. PER MD, GIVE BOLUS AND ORDERED ALBUMIN BY ALANA AND D/C HOME LATER THIS EVENING LONG SBP IS NEAR BASELINE OF MID 90'S TO HIGH 90'S. PT AND FAMILY UPDATED. WILL CARRY OUT ORDERS. WILL CONTINUE TO MONITOR Q1H AND PRN.
--- NOTE | 2020-06-11 12:10 | NUR ---
ROBOTICS TECHNICIAN SPOKE TO PATIENT'S STEPDAUGHTER PER DAUGHTER WILL'S REQUEST YESTERDAY. UPDATED STEP DAUGHTER ON PATIENT'S PARACENTESIS, LOW BP AND AMT OF FLUID OBTAINES - VERBALIZES UNDERSTANDING.
--- NOTE | 2020-06-11 13:00 | NUR ---
IV removal IV DC'd d/t leakying at site. D/C'd with clean sterile technique, catheter fully intact. Pressure dressing applied to site. Patient tolerated well. IV insertion IV access obtained, via clean sterile technique by inserting [22] gauge catheter at [L hand] after [2] attempt(s). IV secured properly. No trauma to site. Patient tolerated well.
[2020-06-11] MEDS: ALBUMIN 25% 100 ML IV SCH ×2 (13:27→15:43)
--- NOTE | 2020-06-11 16:50 | NUR ---
UPDATED FAMILY UPDATED FAMILY RE: PATIENT'S STATUS. INFORMED FAMILY THAT PATIENT SHOULD BE READY TO BE PICKED UP AROUND 1800. PROVIDED FAMILY WITH ALL D/C INSTRUCTIONS INCLUDING FOLLOW UP APPOINTMENT, MEDICATIONS, AND OTHER D/C EDUCATION. FAMILY VERBALIZED UNDERSTANDING.
--- NOTE | 2020-06-11 17:00 | NUR ---
PATIENT BP INCREASE BACK TO BASELINE BP NOW 98/[address] ORDERS, D/C PATIENT INSTRUCTED. WILL CARRY OUT ORDER.
[2020-06-11] MEDS: TAMSULOSIN HYDROCHLORIDE 0.4 MG CAP PO SCH (18:00)
--- NOTE | 2020-06-11 18:00 | NUR ---
PT STATING HE IS MISSING [facility] PT STATING HE CAME INTO ER WITH [facility] AND THEY ARE MISSING. HE THOUGHT THEY WERE IN HIS BAG BUT ARE NOT. LOOKED AL OVER ROOM, N [facility] NOTED. PER BELONGINGS SHEET, SHOES ARE MARKED UPON ADMISSION. SPOKE WITH FAMILY, PER FAMILY , PT DID IN FACT HAVE THE [facility] UPON ARRIVAL TO ER. SPOKE WITH ER, NO [facility] FOUND. WILL GIVE INFORMATION TO GIANFRANCO WOMACK FOR PT / FAMILY TO CALL. PT STATED HE IS OKAY TO STILL GO HOME. WILL CALL HER ON SUNDAY.
--- NOTE | 2020-06-11 18:35 | NUR ---
DISCHARGED Discharge instructions given as ordered. Encourage to follow up with PMD as instructed. Family informed of all d/c instructions as well. All questions and concerns addressed. Patient verbalized understanding. Medication reconciliation form completed and copy given to patient. IV removed with catheter intact, pressure dressing applied, no trauma to site noted. Telemetry unit returned to ICU. Patient taken to vehicle via wheelchair with all personal belongings, except missing shoes. number or neha given to family. family content and stated they will call sunday. Pt accompanied by staff. Pt transported in own personal wheelchair. No distress noted at time of departure.
== END 2020-06-11 18:35 | disposition home or self-care (01) | DRG 441 ==
LOC: ER 08:59 → TELE 09:00 → TELE-CENTR 20:05
PROVIDERS: ADMIT Hospitalist; ATTEND Family Medicine
PROC: 0W9G3ZZ Drainage of Peritoneal Cavity, Percutaneous Approach (ICD-10-PCS; principal; 2020-06-11)
DX: K72.00 Acute and subacute hepatic failure without coma (principal); E43 Unspecified severe protein-calorie malnutrition; E87.1 Hypo-osmolality and hyponatremia; K76.6 Portal hypertension; D68.4 Acquired coagulation factor deficiency; K70.31 Alcoholic cirrhosis of liver with ascites; I95.9 Hypotension, unspecified; D69.6 Thrombocytopenia, unspecified; D64.9 Anemia, unspecified; Z20.828 Contact with and (suspected) exposure to other viral communicable diseases; D72.819 Decreased white blood cell count, unspecified; G89.29 Other chronic pain; M54.5 Low back pain; K21.9 Gastro-esophageal reflux disease without esophagitis; K29.70 Gastritis, unspecified, without bleeding; N28.89 Other specified disorders of kidney and ureter; E03.9 Hypothyroidism, unspecified; Z83.3 Family history of diabetes mellitus; Z79.01 Long term (current) use of anticoagulants; Z80.42 Family history of malignant neoplasm of prostate; Z85.46 Personal history of malignant neoplasm of prostate; Z95.828 Presence of other vascular implants and grafts; Z68.23 Body mass index [BMI] 23.0-23.9, adult; Z86.718 Personal history of other venous thrombosis and embolism
CPT/HCPCS: 10022; 36415; 51702; 71045; 76700; 76942; 80053; 80061; 80074; 80307; 81001; 82140; 83036; 83880; 84443; 84484; 85025; 85610; 85730; 87040; 87081; 87086; 93005; 96361; 96365; 96368; 97163; 99291; G0378; J0696; P9047

== ENCOUNTER → 2020-06-23 | Outpatient (CLI) | payer MEDICARE, BC ==
[~2020-06-23] MED LIST changes: +POTA10TA32 PO; -POTA10TA51 PO
--- NOTE | 2020-06-23 10:00 | NUR ---
PARACENTESIS PATIENT UNDERWENT PARACENTESIS PER DR APODACA UNDER LOCAL ANESTHETIC IN [facility] DEPT. PATIENT TOLERATED PROCEDURE WELL. 5100 ML STRAW COLORED LIQUID DRAINED WITHOUT DIFFICULTY. VS MONITORED Q5MIN PER PROTOCOL. BANDAID APPLIED TO RT ABD AFTER PROCEDURE - SITE WITHOUT BLEEDING/HEMATOMA NOTED. PATIENT BP NORMALLY HYPOTENSIVE - PATIENT ON MIDODRINE AND SELF ADMINISTERED PRIOR TO PROCEDURE. BEGINNING VS 0923 91/62-79-16-98% SAO2 0928 90/61 - 76-16-98% SAO2 0933 89/58 80-16-97% SAO2 0938 88/57-76-16-96%SAO2 0942 88/58-74-14-97%SAO2 0947 85/52-83-14-96% SAO2 0952 83/52-77-14-96% SAO2 0957 87/52 - 81-14-98% SAO2 AUTOMOTIVE SERVICE CONSULTANT ENCOURAGE PATIENT TO TAKE FLUIDS TODAY - STEP DAUGHTER TILA VERBALIZES UNDERSTANDING. PATIENT DEPARTED RADIOLOGY DEPT IN STABLE CONDITION PER WC WITH FAMILY MEMBER.
--- NOTE | 2020-06-23 17:05 | NUR ---
PATIENT UNDERWENT OUTPATIENT CCTA IN [facility] DEPT. #20 GUAGE IV STARTED INTO LEFT FOREARM PER JOSE JUAN BRYANT X 2 UNSUCCESSFUL ATTEMPTS PER MONIQUE BRYANT - PATIENT KRISTINA WELL WITH ENCOURAGEMENT DUE TO ANXIETY. STARTING VS. 134/57 HR 63 RESP 16 SAO2 94% - MONITORED Q2MIN PER PROTOCOL. VS UPON COMPLETION OF PROCEDURE 114/63 HR 66 RESP 16 SAO2 95%. IV REMOVED AT END OF PROCEDURE. PATIENT DEPARTED RADIOLGY DEPT IN STABLE CONDITION WITHOUT C/ DIZZINESS OR HAWLEY. Addendum: 06/23/20 at 1711 by Linda Turner RN ERROR - WRONG PATIENT CHART
== END | disposition home or self-care (01) ==
LOC: US 08:22
DX: R18.8 Other ascites (principal); Z98.890 Other specified postprocedural states; Z80.42 Family history of malignant neoplasm of prostate; Z79.899 Other long term (current) drug therapy
CPT/HCPCS: 49083; C1729; 10022; 76942

== ENCOUNTER → 2020-07-05 | Outpatient (CLI) | payer MEDICARE, BC ==
--- NOTE | 2020-07-05 12:45 | NUR ---
PARACENTESIS PATIENT UNDERWENT [place] GUIDED PARACENTESIS IN [facility] DEPT UNDER LOCAL ANESTHETIC PER DR APODACA. PATIENT TOLERATED PROCEDURE WELL. 5050 ML OLEGARIO FLUID OBTAINED. PATIENT TOLERATED WELL. VS FOLLOWS: 1210 BP 102/66 HR 61 RR 15 SAO2 100% 1215 BP 93/56 HR 61 RR 14 SAO2 100% 1220 BP 90/60 HR 64 RR 12 SAO2 100% 1225 BP 90/58 HR 62 RR 13 SAO2 99% 1230 BP 89/48 HR 64 RR 13 SAO2 99% 1235 BP 88/56 HR 61 RR 12 SAO2 100% 1240 BP 87/57 HR 63 RR 21 SAO2 100% 1245 BP 88/59 HR 62 RR 13 SAO2 100% PER PATIENT'S DAUGHTER WILL - MIDODRINE WAS GIVEN 30 PRIOR TO PROCEDURE. PATIENT DENIES LIGHTHEADEDNESS AFTER PROCEDURE. PATIENT STABLE UPON DISCHARGE TO HOME
== END | disposition home or self-care (01) ==
LOC: US 11:36
DX: R18.8 Other ascites (principal); Z86.718 Personal history of other venous thrombosis and embolism; Z80.42 Family history of malignant neoplasm of prostate; Z98.890 Other specified postprocedural states; Z79.899 Other long term (current) drug therapy
CPT/HCPCS: 49083; C1729; 10022; 76942

== ENCOUNTER → 2020-07-14 | Outpatient (CLI) | payer MEDICARE, BC ==
--- NOTE | 2020-07-14 15:00 | NUR ---
PATIENT UNDERWENT PARACENTESIS PER DR APODACA IN [facility] UNDER LOCAL ANESTHETIC. 5250 ML OLEGARIO LIQ OBTAINED. PATIENT TOLERATED WELL. BANDAID APPLIED TO RIGHT ABD PARACENTESIS SITE WITHOUT BLEEDING/HEMATOMA NOTED AT SITE. VS FOLLOWS: 1414 97/60-63-10- 98% SAO2 1424 100/61-61-12-98% SAO2 1429 97/57 - 61-13-98% SAO2 1434 95/58 -59-11-98% SAO2 1439 92/57 - 599-12- 98% SAO2 1444 92/56-60-13-99% SAO2 1449 95/57-64-13-99% SAO2 1454 98/60 - 60-16 - 99% SAO2 [employer] PROGRAM COORDINATOR UPDATED PATIENT'S DAUGHTER WILL ON COMPLETION OF PROCEDURE - VERBALIZED UNDERSTANDING.
== END | disposition home or self-care (01) ==
LOC: US 12:24
DX: R18.8 Other ascites (principal); Z98.890 Other specified postprocedural states; Z79.899 Other long term (current) drug therapy; Z80.42 Family history of malignant neoplasm of prostate
CPT/HCPCS: 49083; C1729; 10022; 76942

== ENCOUNTER → 2020-07-27 | Outpatient (CLI) | payer MEDICARE, BC ==
[~2020-07-27] MED LIST changes: +LIDOCAINE 2%HCL (LOCAL ANESTH.) INJ 20ML MDV ONE; +MIDAZOLAM HCL 1MG/1ML-2 ML VIAL IV ONE; +MIDAZOLAM HCL 1MG/1ML-2 ML VIAL ONE; +fentaNYL CITRATE 100 MCG/2 ML VL IV ONE; +fentaNYL CITRATE 100 MCG/2 ML VL ONE
== END | disposition home or self-care (01) ==
LOC: US 08:12
DX: R18.8 Other ascites (principal); Z98.890 Other specified postprocedural states; Z79.899 Other long term (current) drug therapy; Z80.42 Family history of malignant neoplasm of prostate; Z86.718 Personal history of other venous thrombosis and embolism
CPT/HCPCS: 49083; 71045; C1729; C1769; J2250; J3010; 10022; 32555; 76942; 77002; 99153; G0500